=== PATIENT | female | born 1980 | race Caucasian/White ===

== ENCOUNTER → 2016-10-06 | Outpatient (CLI) | payer OTHER ==
[2016-10-06 16:54] LABS: BASO % 0.8 % (0.0-1.0); EOS # 0.2 K/mm3 (0.0-0.50); EOS % 5.1 % (0.0-3.0); LARGE UNSTAINED CELL # 0.1 K/mm3 (0.0-0.4); LARGE UNSTAINED CELL % 1.6 % (0.0-4.0); LYMPH # 1.5 K/mm3 (1.5-4.5); LYMPH % 37.8 % (24.0-44.0); MEAN CORPUSCULAR HEMOGLOBIN 31.6 pg (27.0-33.0); MEAN CORPUSCULAR HGB CONC 33.7 g/dl (32.0-36.5); MEAN CORPUSCULAR VOLUME 93.7 fl (80.0-96.0); MONO # 0.3 K/mm3 (0.0-0.8); MONO % 8.1 % (0.0-5.0); NEUTROPHILS # 1.8 K/mm3 (1.8-7.7); NEUTROPHILS % 46.6 % (36.0-66.0); PLATELET COUNT, AUTOMATED 271 k/mm3 (150-450); RED CELL DISTRIBUTION WIDTH 12.2 % (11.5-14.5); WHITE BLOOD COUNT 3.9 K/mm3 (4.0-10.0)
[2016-10-06 17:05] LABS: ALBUMIN 3.8 GM/DL (3.2-5.2); ALBUMIN/GLOBULIN RATIO 1.15 (1.00-1.93); ALKALINE PHOSPHATASE 83 U/L (45-117); ALT/SGPT 22 U/L (12-78); ANION GAP 8 MEQ/L (8-16); AST/SGOT 22 U/L (15-37); BILIRUBIN,TOTAL 0.8 MG/DL (0.2-1.0); BLOOD UREA NITROGEN 11 MG/DL (7-18); CALCIUM LEVEL 9.1 MG/DL (8.5-10.1); CARBON DIOXIDE LEVEL 26 MEQ/L (21-32); CHLORIDE LEVEL 107 MEQ/L (98-107); CHOLESTEROL LEVEL 160 MG/DL (<200); CREATININE FOR GFR 0.73 MG/DL (0.55-1.02); FREE T4 1.09 NG/DL (0.76-1.46); GLOMERULAR FILTRATION RATE > 60.0 (>60); GLUCOSE, FASTING 85 MG/DL (70-105); POTASSIUM SERUM 4.5 MEQ/L (3.5-5.1); SODIUM LEVEL 141 MEQ/L (136-145); TOTAL PROTEIN 7.1 GM/DL (6.4-8.2); TRIGLYCERIDES LEVEL 54 MG/DL (<150)
== END ==
LOC: M LRY 12:40
PROVIDERS: ATTEND Physician Assistant
DX: E66.09 Other obesity due to excess calories (principal)

== ENCOUNTER → 2016-11-21 | Outpatient (CLI) | payer OTHER ==
[2016-11-21 20:19] LABS: FREE T4 0.94 NG/DL (0.76-1.46)
[2016-11-21 20:24] LABS: MEAN CORPUSCULAR HEMOGLOBIN 30.9 pg (27.0-33.0); MEAN CORPUSCULAR HGB CONC 32.6 g/dl (32.0-36.5); MEAN CORPUSCULAR VOLUME 94.8 fl (80.0-96.0); RED CELL DISTRIBUTION WIDTH 12.5 % (11.5-14.5); WHITE BLOOD COUNT 5.4 K/mm3 (4.0-10.0)
== END ==
LOC: M SMT 11:43
PROVIDERS: ATTEND Obstetrics & Gynecology
DX: N93.9 Abnormal uterine and vaginal bleeding, unspecified (principal)

== ENCOUNTER → 2016-12-15 | Outpatient (CLI) | payer OTHER ==
[~2016-12-15] MED LIST: OMEP10CASR PO; TOPA50TA7 PO
--- NOTE | 2016-12-15 14:47 | REP ---
REASON: Dysfunctional uterine bleeding. COMPARISON: None. Transvesical and transvaginal imaging was obtained. The uterus measures 9 x 5 x 6 cm. The parenchymal echo pattern is heterogenous. In the posterior uterine body, there is a 2.4 x 3.1 x 1.9 area of decreased echoes consistent with myomatous change. The endometrial echo complex measures 1 cm in thickness and is otherwise unremarkable in appearance. The right ovary measures 3.4 x 2.5 x 2.8 cm. There is a dominant follicle versus small simple cyst in the substance of the right ovary measuring 1.1 x 2.5 x 1.3 cm. The left ovary measures 3.3 x 1.9 x 1.7 cm and is within normal limits. There is no free fluid in the cul-de-sac. Incidental note is made of a few nabothian cysts. IMPRESSION: Early myomatous changes and simple cysts versus dominant right ovarian follicle as described above. Signed by Justo Martinez DO 12/15/2016 05:01 P
== END ==
LOC: M LRY 08:47
PROVIDERS: ATTEND Obstetrics & Gynecology
DX: D25.9 Leiomyoma of uterus, unspecified (principal)

== ENCOUNTER 2017-01-05 09:05 | Day surgery (SDC) | payer OTHER ==
[2017-01-05] VITALS (7 sets, daily range): BP systolic 103–142; BP diastolic 57–67
[~2017-01-05] VITALS: Ht 160 cm; Wt 93.0 kg
[2017-01-05] MEDS ORDERED: ceFAZolin 2 GM/D5W 50 ML IV BAG (J0690) As Ordered ONE (09:15)
[2017-01-05] MEDS ORDERED: LR 1,000 ML IV ONE (09:15)
[2017-01-05] MEDS ORDERED: PROPOFOL 200 MG/20 ML VIAL As Ordered ONE (09:17)
[2017-01-05] MEDS ORDERED: LIDOCAINE 2% INJ 100 MG/5 ML SDV (FOR ANES.) As Ordered ONE (09:18)
[2017-01-05] MEDS ORDERED: ONDANSETRON 4MG/2ML VIAL (J2405) As Ordered ONE (09:18)
[2017-01-05] MEDS ORDERED: fentaNYL 100 MCG/2 ML INJECTION (J3010) As Ordered ONE ×4 (09:18→14:33)
[2017-01-05] MEDS ORDERED: ROCURONIUM BROMIDE 50 MG/5 ML VIAL As Ordered ONE ×2 (09:18→12:01)
[2017-01-05] MEDS ORDERED: MIDAZOLAM INJ 2 MG/2 ML VIAL (J2250) As Ordered ONE (09:18)
[2017-01-05 09:37] LABS: MEAN CORPUSCULAR HEMOGLOBIN 31.5 pg (27.0-33.0); MEAN CORPUSCULAR HGB CONC 33.4 g/dl (32.0-36.5); MEAN CORPUSCULAR VOLUME 94.2 fl (80.0-96.0); RED CELL DISTRIBUTION WIDTH 12.5 % (11.5-14.5); WHITE BLOOD COUNT 4.6 K/mm3 (4.0-10.0)
[2017-01-05 09:56] LABS: CONTROL LINE HCG INT CTR LINE PRESENT
[2017-01-05] MEDS ORDERED: SILVER NITRATE APPLICATOR As Ordered ONE (11:02)
[2017-01-05] MEDS ORDERED: BUPIVACAINE HCL 0.25% 30 ML VIAL As Ordered ONE (11:02)
[2017-01-05] MEDS ORDERED: METHYLENE BLUE 0.5% (5MG/ML) 10 ML AMP (PROVAYBLUE)(Q9968 PER 1MG) As Ordered ONE (11:02)
[2017-01-05] MEDS ORDERED: dexameTHASONE 4 MG/ML 1ML VIAL (J1100) As Ordered ONE (11:49)
[2017-01-05] MEDS ORDERED: HYDROmorphone HCL 2 MG/ML 1ML VIAL (J1170) As Ordered ONE (12:33)
[2017-01-05] MEDS ORDERED: KETOROLAC 60 MG/2 ML VIAL (J1885) As Ordered ONE (12:42)
[2017-01-05] MEDS ORDERED: NEOSTIGMINE 1MG/ML 5 ML SYRINGE (J2710) As Ordered ONE (14:08)
[2017-01-05] MEDS ORDERED: GLYCOPYRROLATE INJ 0.2 MG/ML 2 ML VIAL As Ordered ONE (14:09)
[2017-01-05] MEDS ORDERED: PROMETHAZINE INJ 25 MG/ML VIAL (J2550) IV PRN (14:45)
[2017-01-05] MEDS ORDERED: PERCOCET 5MG/325MG TAB PO PRN ×3 (14:45→15:00)
[2017-01-05] MEDS ORDERED: ONDANSETRON 4MG/2ML VIAL (J2405) IV PRN (15:00)
[2017-01-05] MEDS ORDERED: LR 1,000 ML IV SCH (15:00)
[2017-01-05] MEDS ORDERED: fentaNYL 100 MCG/2 ML INJECTION (J3010) IV PRN (15:00)
[2017-01-05] MEDS ORDERED: MORPHINE 2 MG/ML 1ML SYRINGE As Ordered ONE (15:11)
[2017-01-05] MEDS: MORPHINE 2 MG/ML 1ML SYRINGE IV PRN ×5 (15:17→15:53)
[2017-01-05] MEDS: LR 1,000 ML IV SCH ×2 (17:56→23:46)
[2017-01-05] MEDS: TOPIRAMATE (TopAMAX) 25 MG TAB PO SCH (18:48)
[2017-01-05] MEDS: KETOROLAC 30 MG/ML VIAL (J1885) IV SCH (18:49)
[2017-01-05] MEDS: DOCUSATE SODIUM 100 MG CAP PO SCH (23:46)
[2017-01-05] MEDS: ONDANSETRON 4MG/2ML VIAL (J2405) IV PRN (23:46)
[2017-01-06 00:10] VITALS: BP 117/64
[2017-01-06] MEDS: KETOROLAC 30 MG/ML VIAL (J1885) IV SCH ×2 (01:10→06:51)
[2017-01-06 04:00] VITALS: BP 102/58
[2017-01-06 06:32] LABS: BASO % 0.1 % (0.0-1.0); EOS % 0.5 % (0.0-3.0); LARGE UNSTAINED CELL # 0.1 K/mm3 (0.0-0.4); LARGE UNSTAINED CELL % 1.5 % (0.0-4.0); LYMPH # 1.2 K/mm3 (1.5-4.5); LYMPH % 15.2 % (24.0-44.0); MEAN CORPUSCULAR HEMOGLOBIN 31.4 pg (27.0-33.0); MEAN CORPUSCULAR HGB CONC 33.5 g/dl (32.0-36.5); MEAN CORPUSCULAR VOLUME 93.7 fl (80.0-96.0); MONO # 0.6 K/mm3 (0.0-0.8); MONO % 7.9 % (0.0-5.0); NEUTROPHILS # 5.7 K/mm3 (1.8-7.7); NEUTROPHILS % 74.7 % (36.0-66.0); PLATELET COUNT, AUTOMATED 255 k/mm3 (150-450); RED CELL DISTRIBUTION WIDTH 12.3 % (11.5-14.5); WHITE BLOOD COUNT 7.7 K/mm3 (4.0-10.0)
[2017-01-06] MEDS: DOCUSATE SODIUM 100 MG CAP PO SCH (08:27)
[2017-01-06] MEDS: TOPIRAMATE (TopAMAX) 25 MG TAB PO SCH (08:27)
[2017-01-06 08:30] VITALS: BP 129/60
[2017-01-06] MEDS ORDERED: ULTR50TA PO (10:07)
[2017-01-06] MEDS ORDERED: traMADol 50 MG TAB PO PRN (10:15)
[2017-01-06] MEDS ORDERED: OXYC1TAB23 PO (11:21)
[2017-01-06] MEDS ORDERED: COLA100C3 PO (11:21)
[2017-01-06] MEDS ORDERED: MOTR200T44 PO (11:25)
[2017-01-06] MEDS: ONDANSETRON 4MG/2ML VIAL (J2405) IV PRN (13:19)
[2017-01-06] MEDS ORDERED: IBUPROFEN 800 MG TAB PO SCH (21:00)
== END 2017-01-06 13:50 | disposition home or self-care (01) ==
LOC: M SDC 09:05 → M PED 16:08 → M SDC 01-06 13:50
PROVIDERS: ATTEND Obstetrics & Gynecology
DX: N93.9 Abnormal uterine and vaginal bleeding, unspecified (principal); D25.9 Leiomyoma of uterus, unspecified; G43.909 Migraine, unspecified, not intractable, without status migrainosus; K21.9 Gastro-esophageal reflux disease without esophagitis; Z88.5 Allergy status to narcotic agent; Z79.899 Other long term (current) drug therapy; Z87.891 Personal history of nicotine dependence
CPT/HCPCS: 36415; 58571; 84703; 85025; 85027; 86850; 86900; 86901; 88309; 96374; 96375; 96376; A6024; J0690; J1100; J1170; J1885; J2250; J2405; J2710; J3010; Q9968

== ENCOUNTER → 2017-05-08 | Outpatient (CLI) | payer OTHER ==
[~2017-05-08] MED LIST changes: +COLA100C5 PO; +MOTR200T44 PO; +OXYC1TAB23 PO; -TOPA50TA7 PO; +TOPA50TA8 PO; +ULTR50TA8 PO
[2017-05-08 18:02] LABS: BASO % 0.8 % (0.0-1.0); IMMATURE GRANULOCYTE % 0.2 % (0-0); LYMPH # 1.4 10^3/uL (1.5-4.5); LYMPH % 29.9 % (24.0-44.0); MEAN CORPUSCULAR HEMOGLOBIN 30.5 pg (27.0-33.0); MEAN CORPUSCULAR HGB CONC 32.8 g/dl (32.0-36.5); MONO # 0.4 10^3/uL (0.0-0.8); MONO % 8.7 % (0.0-5.0); NEUTROPHILS # 2.9 10^3/uL (1.8-7.7); NEUTROPHILS % 60.4 % (36.0-66.0); PLATELET COUNT, AUTOMATED 257 10^3/uL (150-450); RED CELL DISTRIBUTION WIDTH 12.9 % (11.5-14.5); WHITE BLOOD COUNT 4.8 10^3/uL (4.0-10.0)
[2017-05-08 18:08] LABS: ADD MORPHOLOGY? NO
== END ==
LOC: M LRY 11:18
PROVIDERS: ATTEND Physician Assistant Medical
DX: D50.9 Iron deficiency anemia, unspecified (principal); F33.1 Major depressive disorder, recurrent, moderate

== ENCOUNTER → 2017-07-10 | Outpatient (REF) | payer OTHER | LOC: M SFHCLUC 16:18 | PROVIDERS: ATTEND Nurse Practitioner Family | DX: J02.9 Acute pharyngitis, unspecified (principal) ==

== ENCOUNTER → 2017-10-26 | Outpatient (CLI) | payer OTHER ==
[2017-10-26 17:57] LABS: BASO # 0.1 10^3/uL (0.0-0.2); BASO % 1.1 % (0.0-1.0); HEMATOCRIT 40.8 % (36.0-47.0); HEMOGLOBIN 13.7 g/dl (12.0-16.0); LYMPH # 1.5 10^3/uL (1.5-4.5); LYMPH % 33.8 % (24.0-44.0); MEAN CORPUSCULAR HEMOGLOBIN 30.6 pg (27.0-33.0); MEAN CORPUSCULAR HGB CONC 33.6 g/dl (32.0-36.5); MEAN CORPUSCULAR VOLUME 91.1 fl (80.0-96.0); MONO # 0.3 10^3/uL (0.0-0.8); MONO % 7.3 % (0.0-5.0); NEUTROPHILS # 2.6 10^3/uL (1.8-7.7); NEUTROPHILS % 57.8 % (36.0-66.0); PLATELET COUNT, AUTOMATED 276 10^3/uL (150-450); RED BLOOD COUNT 4.48 10^6/uL (4.00-5.40); RED CELL DISTRIBUTION WIDTH 12.4 % (11.5-14.5); WHITE BLOOD COUNT 4.5 10^3/uL (4.0-10.0)
[2017-10-26 17:59] LABS: VITAMIN B12 LEVEL 473 PG/ML (247-911)
== END ==
LOC: M SMT 14:02
DX: D51.3 Other dietary vitamin B12 deficiency anemia (principal)
CPT/HCPCS: 82607

== ENCOUNTER → 2018-02-26 | Outpatient (CLI) | payer OTHER ==
[2018-02-26 20:25] LABS: FREE T4 0.94 NG/DL (0.76-1.46); THYROID STIMULATING HORMONE 0.947 uIU/ML (0.358-3.740)
[2018-02-26 20:26] LABS: TOTAL 25(OH) VITAMIN D 33.1 NG/ML (30.0-100.0)
== END ==
LOC: M LRY 16:49
DX: F33.1 Major depressive disorder, recurrent, moderate (principal)
CPT/HCPCS: 84443